=== PATIENT | female | born 1980 | race Caucasian/White ===

== ENCOUNTER → 2018-03-12 | Outpatient (CLI) | payer OTHER ==
--- NOTE | 2018-03-12 16:19 | CONS ---
CONSULTATION DATE OF SERVICE: 03/12/2018 37-year-old lady has been evaluated in the sleep center for possible obstructive sleep apnea-hypopnea syndrome by referral from [employer]. 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 until and 4:30 am. On days off she sleeps from around 10 or 11 p.m. until 6:30 or 7:00 a.m. No problems with falling asleep although she has TV set in bedroom. She usually sleeps on the side position with occasional snoring and she wakes up from sleep about 2 times with 1 or more episodes of nocturia. No history of hypnagogic hallucinations, sleep paralysis or cataplexy. The patient denied any daytime sleepiness. [place] Sleepiness Scale is 2. PAST MEDICAL HISTORY: History of scoliosis of the low back. Increasing weight. MEDICATIONS: None. PAST SURGICAL HISTORY: None. MEDICATIONS: None. SOCIAL HISTORY: Positive for smoking about 1 pack a day for more than 10 years. Alcohol consumption: None. REVIEW OF SYSTEMS: Sometimes awakenings from sleep with nocturia, sometimes patient's dog will wake her up. FAMILY HISTORY: Hypertension, heart problems, stroke, snoring, headaches, cancer, acid reflux, diabetes, thyroid problems. PHYSICAL EXAM: lady without distress. BP 122/88, HR 88, RR 16, height 5 feet 3-1/2 inches. Weight 264, BMI 46. Neck 16-1/4 inch in circumference. Temperature 99.1. Oxygen saturation at room air 99%. Oropharynx: Moderately low position of soft palate. Short distance between soft palate and posterior pharyngeal wall. ABDOMEN: Obese. Neck Supple, no JVD. Thyroid is not palpable. LUNGS Clear to percussion and to auscultation. Good air exchange. No wheezing or rhonchi. HEART S1, S2 regular. No murmurs, gallops, or rubs. ABDOMEN: Obese. Soft and nontender. Bowel sounds are present. No organomegaly appreciated. EXTREMITIES No clubbing or cyanosis. FLIGHT CONTROL MANAGER Awake, alert, and oriented X3. Cranial nerves 2 to 7 intact. There is no fasciculation or atrophy. noted. No focal deficits observed. IMPRESSION: 1. Occasional snoring, small oropharyngeal air space. Awakenings from sleep with nocturia, obesity, wide neck, possible obstructive sleep apnea, hypopnea syndrome. 2. Obesity BMI 46. 3. Smoker for half-pack a day for more than 20 years. 4. History of low back scoliosis. PLAN: 1. Polysomnography for evaluation of patient's breathing during sleep. 2. CPAP/BiPAP titration if sleep study confirms obstructive sleep apnea-hypopnea syndrome. 3. Preferable position during sleep on the side. 4. No driving if patient feels any sleepiness. 5. I will see patient for follow up visit to explain results of testing and following plan. Thank you very much for referring this patient for consultation. Sincerely, Olman Monsalve MD, PhD, FAASM Diplomat of [employer] [place] [employer] Dba Manager of [facility] [place] [email or web address] / [place]ILL[place]: [id number] /
== END | disposition home or self-care (01) ==
LOC: SLEEP 13:56
PROVIDERS: ATTEND Internal Medicine
DX: R06.83 Snoring (principal); E66.9 Obesity, unspecified; F17.200 Nicotine dependence, unspecified, uncomplicated; Z68.42 Body mass index [BMI] 45.0-49.9, adult; Z87.39 Personal history of other diseases of the musculoskeletal system and connective tissue
CPT/HCPCS: 99211

== ENCOUNTER → 2020-10-18 | Outpatient (CLI) | payer OTHER | END | disposition home or self-care (01) | LOC: LABWHC1 16:59 | PROVIDERS: ATTEND Family Medicine | DX: Z20.822 Contact with and (suspected) exposure to COVID-19 (principal) | CPT/HCPCS: U0003; C9803; U0005 ==

== ENCOUNTER → 2021-06-13 | Outpatient (CLI) | payer OTHER ==
--- NOTE | 2021-06-14 12:00 | MM ---
Reason for exam: screening (asymptomatic). Baseline mammogram. History: Taking hormonal contraceptives for 9 years. Physical Findings: Nurse Summary: 0.5 x 0.5cm nodule in the left breast at 1 o'clock (nurse ts). MG Screening Mammo w CAD Bilateral CC and MLO view(s) were taken. There are scattered fibroglandular densities. Central inner 4mm isodense nodule right CC view becomes less defined on the CC view. 6 month follow up recommended. Lateral left breast palpable marker. These results were verbally communicated with the patient and result sheet given to the patient on 06/13/21. ASSESSMENT: Incomplete: need additional imaging evaluation, BI-RAD 0 RECOMMENDATION: Ultrasound of the left breast. (palpable by nurse) Follow-up diagnostic mammogram of the right breast in 6 months.
--- NOTE | 2021-06-14 12:01 | USB ---
Reason for exam: additional evaluation requested from abnormal screening. History: Taking hormonal contraceptives for 9 years. US Breast Workup Limited LT Left limited breast ultrasound including focal area of concern, retroareolar and axilla demonstrates no cystic or solid lesion seen. Scanned 2 o'clock at the nurse palpated area. These results were verbally communicated with the patient and result sheet given to the patient on 06/13/21. ASSESSMENT: Probably benign, BI-RAD 3 RECOMMENDATION: Follow-up diagnostic mammogram in 6 months. (right breast)
== END | disposition home or self-care (01) ==
LOC: RADMAMWWP 14:46
PROVIDERS: ATTEND Family Medicine
DX: Z12.31 Encounter for screening mammogram for malignant neoplasm of breast (principal); R92.8 Other abnormal and inconclusive findings on diagnostic imaging of breast; Z79.3 Long term (current) use of hormonal contraceptives
CPT/HCPCS: 77067

== ENCOUNTER → 2021-12-17 | Outpatient (CLI) | payer OTHER ==
--- NOTE | 2021-12-18 08:41 | MM ---
Reason for exam: follow-up at short interval from prior study. Last mammogram was performed 6 months ago. History: Taking hormonal contraceptives for 10 years beginning at age 31. Physical Findings: A clinical breast exam by your physician is recommended on an annual basis and results should be correlated with mammographic findings. MG 3D Diag Mammo W/Cad RT CC and MLO view(s) were taken of the right breast. Prior study comparison: June 13, 2021, bilateral MG screening mammo w CAD. There are scattered fibroglandular densities. No significant changes when compared with prior studies. ASSESSMENT: Benign, BI-RAD 2 RECOMMENDATION: Return to routine screening mammogram schedule for both breasts. Back on schedule.
== END | disposition home or self-care (01) ==
LOC: RADMAMWWP 13:09
PROVIDERS: ATTEND Family Medicine
DX: R92.8 Other abnormal and inconclusive findings on diagnostic imaging of breast (principal)
CPT/HCPCS: 77065; G0279; 77061

== ENCOUNTER → 2022-07-10 | Outpatient (CLI) | payer OTHER ==
--- NOTE | 2022-07-11 09:08 | MM ---
Reason for Exam: Screening (asymptomatic). Last mammogram was performed 1 year(s) and 1 month(s) ago. Patient History: Menarche at age 13. First Full-Term at age 30. Late child-bearing (after 30). Premenopausal. Patient has history of breast feeding. Currently using Hormonal Contraceptives, beginning at age 31 for 10 years. Last menstrual period: 06/25/2022 Risk Values: Susi 5 year model risk: 0.8%. NCI Lifetime model risk: 13.5%. Prior Study Comparison: 06/13/2021 Bilateral Screening Mammogram, [facility]. 12/17/2021 Right Diagnostic Mammogram, [facility]. Tissue Density: There are scattered fibroglandular densities. Findings: Analyzed By CAD. Small obscured along the outer aspect of the right nipple are more defined or prominent from prior study. There is no suspicious new group of microcalcifications or new distortion in either breast. Overall Assessment: Incomplete: need additional imaging evaluation, BI-RAD 0 Management: Diagnostic Breast Ultrasound of the right breast. Targeted ultrasound right breast outer aspect right periareolar level. Electronically signed and approved by: Delroy Monson M.D.
--- NOTE | 2022-07-11 09:08 | MM ---
Reason for Exam: Screening (asymptomatic). Last mammogram was performed 1 year(s) and 1 month(s) ago. Patient History: Menarche at age 13. First Full-Term at age 30. Late child-bearing (after 30). Premenopausal. Patient has history of breast feeding. Currently using Hormonal Contraceptives, beginning at age 31 for 10 years. Last menstrual period: 06/25/2022 Risk Values: Susi 5 year model risk: 0.8%. NCI Lifetime model risk: 13.5%. Prior Study Comparison: 06/13/2021 Bilateral Screening Mammogram, [facility]. 12/17/2021 Right Diagnostic Mammogram, [facility]. Tissue Density: There are scattered fibroglandular densities. Findings: Analyzed By CAD. Small obscured along the outer aspect of the right nipple are more defined or prominent from prior study. There is no suspicious new group of microcalcifications or new distortion in either breast. Overall Assessment: Incomplete: need additional imaging evaluation, BI-RAD 0 Management: Diagnostic Breast Ultrasound of the right breast. Targeted ultrasound right breast outer aspect right periareolar level. Electronically signed and approved by: Delroy Monson M.D.
== END | disposition home or self-care (01) ==
LOC: RADMAMWWP 11:04
PROVIDERS: ATTEND Family Medicine
DX: Z12.39 Encounter for other screening for malignant neoplasm of breast (principal); Z12.31 Encounter for screening mammogram for malignant neoplasm of breast
CPT/HCPCS: 77063; 77067

== ENCOUNTER → 2022-07-16 | Outpatient (CLI) | payer OTHER ==
--- NOTE | 2022-07-16 11:04 | USB ---
Reason for Exam: Additional evaluation requested from abnormal screening. Patient History: Menarche at age 13. First Full-Term at age 30. Late child-bearing (after 30). Premenopausal. Patient has history of breast feeding. Currently using Hormonal Contraceptives, beginning at age 31 for 10 years. Risk Values: Susi 5 year model risk: 0.8%. NCI Lifetime model risk: 13.5%. Technique: Method: Targeted. Prior Study Comparison: 06/13/2021 Bilateral Screening Mammogram, [facility]. 12/17/2021 Right Diagnostic Mammogram, [facility]. 07/10/2022 Bilateral MG 3D screening mammo w/cad, [facility]. Findings: The lateral section of the breast of the right breast, the periareolar of the right breast and the retroareolar of the right breast were scanned. Targeted ultrasound the right breast from 8-10 o'clock with evaluation the nipple and lateral periareolar was performed. No solid or cystic mass identified corresponding to mammogram. Overall Assessment: Probably benign, BI-RAD 3 Management: Diagnostic Mammogram of the right breast in 6 months. A clinical breast exam by your physician is recommended on an annual basis and results should be correlated with mammographic findings. This exam should not preclude additional follow-up of suspicious palpable abnormalities. ??Results were given to the patient verbally at the time of exam. Electronically signed and approved by: Bogdan Hernandes D.O.
== END | disposition home or self-care (01) ==
LOC: RADUSWWP 10:39
PROVIDERS: ATTEND Family Medicine
DX: R92.8 Other abnormal and inconclusive findings on diagnostic imaging of breast (principal)

== ENCOUNTER → 2023-01-31 | Outpatient (CLI) | payer OTHER ==
--- NOTE | 2023-01-31 11:50 | MM ---
Reason for Exam: Follow-up at short interval from prior study. Last screening mammogram was performed 7 month(s) ago. Patient History: Menarche at age 13. First Full-Term at age 30. Late child-bearing (after 30). Premenopausal. Patient has history of breast feeding. Currently using Hormonal Contraceptives, beginning at age 31 for 10 years. Risk Values: Susi 5 year model risk: 0.9%. NCI Lifetime model risk: 13.4%. Prior Study Comparison: 06/13/2021 Bilateral Screening Mammogram, [facility]. 12/17/2021 Right Diagnostic Mammogram, [facility]. 07/10/2022 Bilateral MG 3D screening mammo w/cad, [facility]. Tissue Density: Right: There are scattered fibroglandular densities. Findings: Analyzed By CAD. No new suspicious mass, architectural distortion, or group of microcalcifications within the right breast. Previously seen asymmetry at the nipple on the CC view is not appreciated on today's exam. Overall Assessment: Negative, BI-RAD 1 Management: Screening Mammogram of both breasts in 6 months. A clinical breast exam by your physician is recommended on an annual basis and results should be correlated with mammographic findings. This exam should not preclude additional follow-up of suspicious palpable abnormalities. Results were given to the patient verbally at the time of exam. Electronically signed and approved by: Bogdan Hernandes D.O.
== END | disposition home or self-care (01) ==
LOC: RADMAMWWP 11:04
PROVIDERS: ATTEND Family Medicine
DX: R92.8 Other abnormal and inconclusive findings on diagnostic imaging of breast (principal)
CPT/HCPCS: 77065; G0279; 77061

== ENCOUNTER → 2023-10-22 | Outpatient (CLI) | payer OTHER ==
--- NOTE | 2023-10-23 20:57 | MM ---
Reason for Exam: Screening (asymptomatic). Last mammogram was performed 1 year(s) and 3 month(s) ago. Patient History: Menarche at age 13. First Full-Term at age 30. Late child-bearing (after 30). Premenopausal. Patient has history of breast feeding. Currently using Hormonal Contraceptives, beginning at age 31 for 10 years. Paternal aunt had breast cancer under age 50. Last menstrual period: 10/15/2023 Risk Values: Susi 5 year model risk: 0.9%. NCI Lifetime model risk: 13.4%. Prior Study Comparison: 12/17/2021 Right Diagnostic Mammogram, [facility]. 07/10/2022 Bilateral MG 3D screening mammo w/cad, [facility]. 01/31/2023 Right MG 3D diag mammo w/cad RT, [facility]. Tissue Density: There are scattered fibroglandular densities. Findings: Analyzed By CAD. There is no suspicious group of microcalcifications or new suspicious mass in either breast. Overall Assessment: Negative, BI-RAD 1 Management: Screening Mammogram of both breasts in 1 year. . Patient should continue monthly self-breast exams. A clinical breast exam by your physician is recommended on an annual basis. This exam should not preclude additional follow-up of suspicious palpable abnormalities. Note on Susi scores and lifetime risk: 1. A Susi score greater than 3% is considered moderate risk. If this is the case, consider specialist referral to assess eligibility for a risk reducing agent. 2. If overall lifetime risk for the development of breast cancer is 20% or higher, the patient may qualify for future screening with alternating mammogram and breast MRI. Electronically signed and approved by: Miguel Zhu M.D. Radiologist
== END | disposition home or self-care (01) ==
LOC: RADMAMWWP 10:05
PROVIDERS: ATTEND Family Medicine
DX: Z12.31 Encounter for screening mammogram for malignant neoplasm of breast (principal); Z80.3 Family history of malignant neoplasm of breast
CPT/HCPCS: 77063; 77067

== ENCOUNTER → 2024-12-20 | Outpatient (CLI) | payer OTHER ==
--- NOTE | 2024-12-20 10:44 | MM ---
Reason for Exam: Screening (asymptomatic). Last mammogram was performed 1 year(s) and 2 month(s) ago. Patient History: Menarche at age 13. First Full-Term at age 30. Late child-bearing (after 30). Premenopausal. Patient has history of breast feeding. Currently using Hormonal Contraceptives, beginning at age 31 for 10 years. Paternal aunt had breast cancer, age 40. Risk Values: Susi 5 year model risk: 1.1%. NCI Lifetime model risk: 13.1%. Prior Study Comparison: 07/10/2022 Bilateral MG 3D screening mammo w/cad, [facility]. 01/31/2023 Right MG 3D diag mammo w/cad RT, [facility]. 10/22/2023 Bilateral MG 3D screening mammo w/cad, [facility]. Tissue Density: There are scattered areas of fibroglandular density. Findings: Analyzed By CAD. There is no suspicious group of microcalcifications or new suspicious mass in either breast. Overall Assessment: Negative, BI-RAD 1 Management: Screening Mammogram of both breasts in 1 year. . Patient should continue monthly self-breast exams. A clinical breast exam by your physician is recommended on an annual basis. This exam should not preclude additional follow-up of suspicious palpable abnormalities. Note on Susi scores and lifetime risk: 1. A Susi score greater than 3% is considered moderate risk. If this is the case, consider specialist referral to assess eligibility for a risk reducing agent. 2. If overall lifetime risk for the development of breast cancer is 20% or higher, the patient may qualify for future screening with alternating mammogram and breast MRI. [facility], , 12/20/2024 10:39 AM. Electronically signed and approved by: Kian Sauceda M.D. Radiologis
== END | disposition home or self-care (01) ==
LOC: RADMAMWWP 10:07
PROVIDERS: ATTEND Family Medicine
DX: Z12.31 Encounter for screening mammogram for malignant neoplasm of breast (principal); R92.323 Mammographic fibroglandular density, bilateral breasts; Z80.3 Family history of malignant neoplasm of breast; Z79.3 Long term (current) use of hormonal contraceptives
CPT/HCPCS: 77063; 77067